=== PATIENT | male | born 1955 | race Caucasian/White ===

== ENCOUNTER → 2016-07-27 10:17 | Outpatient (CLI) | payer MEDICARE ==
[2011-05-08 17:25] VITALS: BMI 23.7
== END | disposition home or self-care (01) ==
LOC: D.LABREF 10:17
DX: D49.2 Neoplasm of unspecified behavior of bone, soft tissue, and skin (principal)

== ENCOUNTER → 2016-08-29 19:01 | Outpatient (CLI) | payer MEDICARE ==
[2011-05-08 17:25] VITALS: BMI 23.7
[2016-08-31 10:18] LABS: HEPATITIS C ANTIBODY <0.1 (0.0-0.9)
== END | disposition home or self-care (01) ==
LOC: D.LAB 19:01
PROVIDERS: Family Medicine
DX: R94.5 Abnormal results of liver function studies (principal)

== ENCOUNTER → 2016-08-29 19:53 | Outpatient (CLI) | payer MEDICARE ==
[2011-05-08 17:25] VITALS: BMI 23.7
== END | disposition home or self-care (01) ==
LOC: D.LAB 19:53
DX: R94.5 Abnormal results of liver function studies (principal)

== ENCOUNTER 2017-08-21 03:52 | Inpatient (IN) | payer MEDICARE ==
[~2017-08-21] VITALS: Ht 177.8 cm; Wt 69.1 kg
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
[2017-08-21 04:29] LABS: BASOPHILS 0.2 % (0-2); EOSINOPHILS 0.9 % (0-7); HEMATOCRIT 32.6 % (42.0-54.0); HEMOGLOBIN 10.3 g/dL (13.5-17.5); IMMATURE GRANULOCYTES 0.2 % (0-5); LYMPHOCYTES 9.8 % (15-50); MCH 29.9 pg (26.0-34.0); MCHC 31.6 g/dL (31.0-37.0); MCV 94.8 fL (80.0-100.0); MEAN PLATELET VOLUME 9.7 fL (7.4-10.4); MONOCYTES 2.8 % (2-11); NEUTROPHILS 86.1 % (40-80); PLATELET COUNT 192 10x3/uL (130-400); RBC 3.44 10x6/uL (4.20-6.10); RDW 13.6 % (11.5-14.5); WBC 9.3 10x3/uL (4.8-10.8)
[2017-08-21 04:39] LABS: INR 1.06 (0.85-1.17); PROTIME 13.4 SECONDS (11.6-15.0)
[2017-08-21 04:40] LABS: APTT 36.7 SECONDS (22.8-39.4)
[2017-08-21 04:45] LABS: ALBUMIN 3.1 g/dL (3.4-5.0); ALKALINE PHOSPHATASE 97 U/L (46-116); ALT (SGPT) 15 U/L (10-68); CALC OSMOLALITY 284 mosm/kg (275-300); CALCIUM 8.5 mg/dL (8.5-10.1); CHLORIDE - SERUM 107 mmol/L (98-107); GLUCOSE 147 mg/dL (74-106); POTASSIUM - SERUM 4.6 mmol/L (3.5-5.1); PROTEIN - SERUM 6.8 g/dL (6.4-8.2); SODIUM 142 mmol/L (136-145); UREA NITROGEN 11 mg/dL (7-18); eGFR NON AFRICAN AMERICAN 81 mL/min (90-120)
[2017-08-21 05:20] LABS: APPEARANCE HAZY (CLEAR); BILIRUBIN NEGATIVE (NEGATIVE); COLOR YELLOW (YELLOW); GLUCOSE 50 mg/dL (NEGATIVE); KETONE NEGATIVE (NEGATIVE); NITRITE NEGATIVE (NEGATIVE); PROTEIN TRACE mg/dL (NEGATIVE); UROBILINOGEN NORMAL (NORMAL)
[2017-08-21 05:21] LABS: BACTERIA FEW /hpf (NONE SEEN); EPITHELIAL CELLS 0-5 /hpf (0-5); RED CELLS - URINE 0-5 /hpf (0-5); WHITE CELLS - URINE 0-5 /hpf (0-5)
[2017-08-21 14:17] VITALS: BP 161/97
[2017-08-21 14:52] VITALS: BP 111/71; Ht 177.8 cm; Wt 69.1 kg
[2017-08-21] MEDS ORDERED: GLUCOPHAGE500 MG PO (16:11)
[2017-08-21] MEDS ORDERED: BUTALB-APAP-CA1 EACH PO (16:12)
[2017-08-21] MEDS ORDERED: SOMA350 MG PO (16:13)
[2017-08-21 19:08] VITALS: BP 113/68
[2017-08-21 20:24] VITALS: BP 132/77
[2017-08-22 00:16] VITALS: BP 147/76
[2017-08-22 05:05] VITALS: BP 169/90
[2017-08-22 05:34] LABS: BASOPHILS 0.2 % (0-2); EOSINOPHILS 0.2 % (0-7); HEMATOCRIT 27.1 % (42.0-54.0); HEMOGLOBIN 8.7 g/dL (13.5-17.5); IMMATURE GRANULOCYTES 0.2 % (0-5); LYMPHOCYTES 8.6 % (15-50); MCHC 32.1 g/dL (31.0-37.0); MCV 93.4 fL (80.0-100.0); MEAN PLATELET VOLUME 9.9 fL (7.4-10.4); MONOCYTES 10.1 % (2-11); NEUTROPHILS 80.7 % (40-80); RDW 13.5 % (11.5-14.5)
[2017-08-22 05:48] LABS: PLATELET COUNT 131 10x3/uL (130-400); WBC 5.8 10x3/uL (4.8-10.8)
[2017-08-22 06:10] LABS: ALBUMIN 2.8 g/dL (3.4-5.0); ALKALINE PHOSPHATASE 81 U/L (46-116); ALT (SGPT) 12 U/L (10-68); CALCIUM 7.9 mg/dL (8.5-10.1); CARBON DIOXIDE 22.6 mmol/L (21.0-32.0); CREATININE - SERUM 0.8 mg/dL (0.6-1.3); PROTEIN - SERUM 6.2 g/dL (6.4-8.2); eGFR NON AFRICAN AMERICAN > 90 mL/min (90-120)
[2017-08-22 06:11] LABS: GLUCOSE 198 mg/dL (74-106); UREA NITROGEN 8 mg/dL (7-18)
[2017-08-22 07:21] LABS: CALC OSMOLALITY 275 mosm/kg (275-300); CHLORIDE - SERUM 101 mmol/L (98-107); POTASSIUM - SERUM 4.3 mmol/L (3.5-5.1); SODIUM 136 mmol/L (136-145)
[2017-08-22 08:15] VITALS: BP 163/85
[2017-08-22 12:26] VITALS: BP 155/90
[2017-08-22] MEDS ORDERED: ACETAMINOPHEN325 MG PO (12:28)
[2017-08-22] MEDS ORDERED: HYDROCODONE-APA1 TAB PO (12:28)
== END 2017-08-22 13:41 | disposition home or self-care (01) | DRG 494 ==
LOC: D.ER 03:52 → D.EDHOLD 04:33 → D.MS 13:45
PROVIDERS: Family Medicine; Orthopaedic Surgery Foot and Ankle Surgery
PROC: 0QSG04Z Reposition Right Tibia with Internal Fixation Device, Open Approach (ICD-10-PCS; principal; 2017-08-21 11:00)
DX: S82.141B Displaced bicondylar fracture of right tibia, initial encounter for open fracture type I or II (principal); W32.0XXA Accidental handgun discharge, initial encounter; E11.9 Type 2 diabetes mellitus without complications; I10 Essential (primary) hypertension; F10.10 Alcohol abuse, uncomplicated; D50.0 Iron deficiency anemia secondary to blood loss (chronic); F17.200 Nicotine dependence, unspecified, uncomplicated